=== PATIENT | male | born 2000 | race Caucasian/White ===

== ENCOUNTER 2023-07-20 07:10 | Outpatient (OUT) | payer OTHER, SELFPAY ==
--- NOTE | 2023-07-20 07:35 | MR_ITS ---
[facility] [id number] Patient Name: PAULINE SHARIF MRN: [id number] date: 2000 Sex: M Assigned Patient Location: MRI Current Patient Location: MRI Accession/Order Number: [id number] Exam Date: 07/20/2023 07:35 Report Date: 07/20/2023 10:24 At the request of: CAMPOS GAXIOLA Procedure: MR head/brain wo/w con EXAM: MR head/brain wo/w con CLINICAL INDICATION: Loss of consciousness R40.20 COMPARISON: None TECHNIQUE/PROTOCOL: Standard pre and postcontrast protocol brain MRI performed (Sagittal T1 with axial T1, T2, GRE, FLAIR, and diffusion-weighted imaging). CONTRAST: 11 mL of. [place] FINDINGS: No restricted diffusion, extra-axial fluid collection, hydrocephalus, midline shift, or other mass effect. Intracranial flow voids are maintained. Normal midline structures. No abnormal parenchymal, leptomeningeal, or dural enhancement. Normal marrow signal. No acute soft tissue abnormalities. Small incidental Tornwaldt cyst. Paranasal sinuses and mastoid air cells are well-aerated. MR/MR head/brain wo/w con IMPRESSION: No acute intracranial process or abnormal enhancement. Electronically authenticated by: ADARSH MENDOZA Date: 07/20/2023 10:24
== END 2023-07-20 07:11 | disposition home or self-care (01) ==
LOC: MRI 07:11
PROVIDERS: PCP Family Medicine; Visit Provider Psychiatry & Neurology Neurology
DX: R40.20 Unspecified coma (principal)
CPT/HCPCS: 70553; A9575